=== PATIENT | male | born 1940 | race Caucasian/White ===

== ENCOUNTER 2019-06-24 13:07 | Emergency (ER) | payer MEDICARE ==
[~2019-06-24] VITALS: Ht 177.8 cm; Wt 68.0 kg
--- NOTE | ~2019-06-24 | EKG ---
[place], [place] ELECTROCARDIOGRAM REPORT NAME: PETER SANDOVAL UNIT #: [id number] ROOM: DOCTOR: EPIPHANY DRAFT REPORT BIRTHDATE: [birth year] [facility] Test Date: 2019-06-24 Test Time: 13:30:11 Pat Name: PETER SANDOVAL Department: Room: Gender: M Quality Tech: : 1940 Requested By: KITTY PERDOMO Order Number: [id number] Reading MD: Rocael Zaidi MD Measurements Intervals [place] Rate: 124 P: [place]: QRS: 53 QRSD: 136 T: 264 QT: 308 QTc: 443 Interpretive Statements Atrial fibrillation Right bundle branch block Nonspecific repol abnormality, lateral leads Electronically Signed On 06-25-2019 8:09:32 PDT by Rocael Zaidi MD CM:EKGRPT:ELECTROCARDIOGRAM REPORT [id number] KITTY LOPEZ DRAFT REPORT KITTY PERDOMO MD
[2019-06-24 13:54] LABS: HEMATOCRIT 43.7 % (42.0-52.0); HEMOGLOBIN 13.5 g/dl (14.0-18.0); MEAN CELL VOLUME 96.7 fl (80.0-94.0); MEAN CORPUSCULAR HGB 29.9 pg (27.0-31.0); MEAN CORPUSCULAR HGB CONC 30.9 g/dl (33.0-37.0); MEAN PLATELET VOLUME 9.1 fl (9.6-12.3); PLATELET COUNT AUTOMATED 167 10*3/uL (130-400); RED BLOOD COUNT 4.52 10*6/uL (4.50-5.90); RED CELL DISTRI WIDTH 15.9 % (0-14.5)
[2019-06-24 14:12] LABS: ALBUMIN 1.7 gm/dl (3.1-4.5); ALKALINE PHOSPHATASE 149 U/L (45-117); BUN 34 mg/dl (7-24); CHLORIDE 122 mmol/L (98-107); CREATININE 1.77 mg/dL (0.70-1.30); POTASSIUM 3.9 mmol/L (3.5-5.1); SGOT/AST 24 IU/L (3-35); SGPT/ALT 22 U/L (12-78); SODIUM 155 mmol/L (136-145); TOTAL PROTEIN 5.2 gm/dL (6.4-8.2)
[2019-06-24 14:15] LABS: BILIRUBIN NEGATIVE (NEGATIVE); BLOOD 2+ (NEGATIVE); CLARITY CLOUDY (CLEAR); COLOR YELLOW (YELLOW); GLUCOSE NEGATIVE (NEGATIVE); KETONE NEGATIVE (NEGATIVE); LEUKO ESTERASE 3+ (NEGATIVE); NITRITE NEGATIVE (NEGATIVE); PH >= 9.0 (5.0-9.0); SPECIFIC GRAVITY 1.015 (1.005-1.030); UROBILINOGEN 0.2 E.U./dl (0.2-1.0)
[2019-06-24 14:18] LABS: BURR CELLS FEW; TOTAL CELLS COUNTED 100 #CELLS
[2019-06-24 14:19] LABS: PLATELET SUFFICIENCY NORMAL (NORMAL)
[2019-06-24 14:22] LABS: INTERNATIONAL NORM RATIO 1.1 (2.0-3.5)
[2019-06-24 14:26] LABS: TROPONIN I < 0.015 ng/ml (<0.045)
[2019-06-24 14:29] LABS: BACTERIA 2+; WBC 41-50 wbc/hpf (0-5)
== END 2019-06-25 01:30 | disposition short-term general hospital (02) ==
LOC: ED 13:07
PROVIDERS: Emergency Medicine
DX: A41.9 Sepsis, unspecified organism (principal); N39.0 Urinary tract infection, site not specified; R41.82 Altered mental status, unspecified; R65.21 Severe sepsis with septic shock; R00.0 Tachycardia, unspecified; E87.0 Hyperosmolality and hypernatremia; N17.9 Acute kidney failure, unspecified; Z88.2 Allergy status to sulfonamides